=== PATIENT | male | born 1960 | race Caucasian/White ===

== ENCOUNTER 2020-01-15 23:09 | Inpatient (IN) | payer OTHER, SELFPAY ==
[2020-01-15 23:09] VITALS: BP 121/91; PULSE 103; RESP 20; TEMP 36.8; O2SAT 97; BMI 41.8
--- NOTE | 2020-01-15 23:10 | XRR_ITS ---
PROCEDURE INFORMATION: Exam: XR Chest, 1 View Exam date and time: 01/15/2020 11:12 PM Age: 59 years old Clinical indication: Chest pain; Additional info: Stemi TECHNIQUE: Imaging protocol: XR of the chest Views: 1 view. COMPARISON: No relevant prior studies available. FINDINGS: Lungs: Mild pulmonary edema is appreciated. Pleural space: Unremarkable. No pleural effusion. No pneumothorax. Heart/Mediastinum: Unremarkable. No cardiomegaly. Bones/joints: Unremarkable. XR/XR chest 1V portable [id number] IMPRESSION: Mild pulmonary edema.
--- NOTE | 2020-01-15 23:10 | ECG_ITS ---
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 Measurements Intervals [place] Rate: 96 P: 21 SC: 172 QRS: 84 QRSD: 100 T: 38 QT: 328 QTc: 415 Interpretive Statements SINUS RHYTHM POSSIBLE LEFT ATRIAL ENLARGEMENT [-0.1mV P WAVE IN V1/V2] ANTEROSEPTAL MYOCARDIAL INFARCTION , PROBABLY OLD [40+ ms Q WAVE IN V1-V4] ST ELEVATION, CONSIDER INFERIOR INJURY [MARKED ST ELEVATION W/O NORMALLY INFLECTED T WAVE IN II/aVF] ACUTE OR INTERPRETATION BASED ON A DEFAULT AGE OF 40 YEARS No previous ECG available for comparison Electronically Signed On 01-16-2020 22:03:08 CDT by Delia Frias M.D. [id number] f
--- NOTE | 2020-01-15 23:12 | ED_ITS ---
HPI - Chest Pain General: Chief Complaint: Chest Pain Stated Complaint: STEMI Time Seen by Provider: 01/15/20 23:11 Source: patient and EMS Mode of arrival: EMS Limitations: no limitations History of Present Illness: HPI narrative: 59-year-old male who states he is been having chest pain over the last 3 days. He states he started having a serious pain 1 hour ago. Patient brought in by EMS and is having an active ST elevation TN. Patient was given 2 nitros in route which did lower his pressure. Patient denies any worsening or improving factors. Denies any vomiting. He has a history of heart disease along with high cholesterol and high blood pressure. He is a former smoker. MD complaint: chest pain Associated symptoms: Deny abdominal pain, dyspnea, fever(s), nausea or vomiting Review of Systems Const: Denies: fever(s), chills, body aches or change in appetite Eyes: Denies: blurry vision or eye discomfort ENMT: Denies: throat pain or dental pain Card: Reports: chest pain Resp: Denies: dyspnea GI: Denies: abdominal pain, nausea, vomiting or diarrhea : Denies: dysuria Musc: Denies: neck pain or back pain Skin/Breast: Denies: rash Neuro: Denies: headache(s) Psych: Denies: depression Andrea/Lymph: Denies: easy bruising All/Imm: Denies: urticaria Physical Exam Const: COMMON NORMALS: no acute distress, patient oriented x3 and healthy appearing HENMT: COMMON NORMALS: normocephalic and atraumatic HEAD & SCALP: normocephalic and atraumatic Eye: COMMON NORMALS: Equal, round and reactive pupils present and EOMs intact bilaterally PUPIL: Yes Equal, round and reactive pupils present Neck/C-Spine: COMMON NORMALS: full ROM and supple Chest: COMMONS NORMALS: normal inspection of the chest and normal palpation of entire chest wall Resp: COMMON NORMALS: normal respiratory effort, No retractions, No use of accessory muscles and clear to auscultation bilaterally AUSCULTATION: clear to auscultation bilaterally Cardio: COMMON NORMALS: regular rate, regular rhythm and No murmurs present (Cardio) RATE: regular rate RHYTHM: regular rhythm GI: COMMON NORMALS: Normal to inspection, nondistended, normoactive bowel sounds present, Soft to palpation, non-tender and no masses PALPATION: Yes Soft to palpation Extremity: COMMON NORMALS: normal to inspection and full ROM Neuro: COMMON NORMALS: patient oriented x3, moves all extremities and no focal motor deficits Psych: COMMON NORMALS: mental status grossly normal, Normal thought process present and cooperative THOUGHT PROCESS: Normal thought process present Skin: COMMON NORMALS: no rashes or lesions noted and no wounds GENERAL SKIN EXAM: no rashes or lesions noted MDM - Chest Pain MDM Narrative: Medical decision making narrative: Patient presents here with ST elevation TN. Patient seen by Dr. Ryder will take to the Gauge Maker. Patient's blood pressure here is improved after IV fluids. Discharge Plan Discharge Patient Disposition: Admitted As Inpatient Clinical Impression: ST elevation [place] (STEMI) Qualifiers: Involved coronary artery: other inferior wall coronary artery Qualified Code(s): I21.19 - ST elevation (STEMI) myocardial infarction involving other coronary artery of inferior wall Condition: Stable Coding Level of Care Code ED Clean Room Assembler for Anna Parra
--- NOTE | 2020-01-15 23:18 | XACV_ITS ---
Gender: Male : 1960 Exam Priority: Routine Procedure(s): Procedure Description: Diagnostic procedure Procedure Description: Left Heart Catheterization Procedure Description: Right Heart Catheterization Procedure Description: Left ventriculography Diagnostic Findings LM: Severe 90% stenosis, PRISCA: 3 flow. pLAD to mLAD: Severe 100% stenosis, PRISCA: 2 flow. mLAD to dLAD: Severe 90% stenosis, PRISCA: 2 flow. pCIRC to mCIRC: Severe 90% stenosis, PRISCA: 2 flow. Mid Right Coronary Artery: Severe 100% stenosis, PRISCA: 0 flow. Mid Right Coronary Artery to Distal Right Coronary Artery: Severe 100% stenosis, PRISCA: 0 flow. Distal Right Coronary Artery: has lesion. Coronary angiography shows right dominance. PCI Status: Emergency PCI Indication: STEMI - Immediate PCI for STEMI Interventional Findings Mid Right Coronary Artery: 100% stenosis treated with two AB MINI TREK 2.00X12 RX BALLOON, MDT R MAYE 3.0X38 HENRRY, MDT R MAYE 3.0X18 HENRRY, and MDT NC EUPHORA RX 3.57C69XJ BALLOON. 0% residual stenosis, PRISCA: 3 flow. Mid Right Coronary Artery to Distal Right Coronary Artery: 100% stenosis treated with Drug Eluting Stent. 0% residual stenosis, PRISCA: 3 flow. Conclusions There is severe coronary artery disease with four vessel disease. Mid Right Coronary Artery was treated with three Balloon and two Drug Eluting Stent. Mid Right Coronary Artery to Distal Right Coronary Artery was treated with Drug Eluting Stent. Lewis Huizar is a 59 year old male past medical history significant for noncompliance, multivessel coronary artery disease with history of known chronically occluded mid LAD, history of 50% distal left main, history of balloon angioplasty of possible PDA, please note that this is as per patient's family I have not had any prior documentation from [place] according to the patient and family in [place] he was told that he requires bypass surgery which he declined. At that time balloon angioplasty was performed in one the artery and sent home with suggestion that he should get bypass. Patient did not follow-up with cardiology or primary care physician. In fact he stopped all the medicines. For the past few days patient has noticed that he is becoming more short of breath and experienced chest pain off and on basis many times a day especially after eating heavy meal. For the last 2 days his chest pain started becoming more consistent but he did not seek medical attention. Tonight all of a sudden it hit him so hard that he was not able to breathe rated 10 out of 10 he was pale sweaty and diaphoretic. He called 911 who brought him here EKG was consistent with inferior wall ST elevation with reciprocal changes in 1 and aVL. I responded to the ST elevation [place] pager patient was writhing in pain looking pale diaphoretic he appeared to be shocky with systolic blood pressure dropping down into 70s and off-and-on exhibiting bradycardia without significant heart blocks. As patient is becoming more unstable I will immediately take him to the Irrigation Equipment Remover. I have spoken to the patient and the family member his daughter and her over the phone and in person . All risk benefit and alternative for emergent procedure has been explained. They would like to proceed with it. Recommendations Dopplerable left anterior posterior tibial pulse. 1-Return to ICU for close monitoring and routine PCI care2-Trnasfer to ICU3-Consult for CABG4-Statin with LDL goal of 70 mg/dl, aspirin 81 mg p.o. daily for life long 5-CT surgery consults for CABG6-Optimal medical management for MI7-Follow up with Dr. Frias and establish care with primary care physician. Interventional RX Recommendation: CABG Diagnostic RX Recommendation: PCI w/o planned CABG Clinical Evaluation EBL: 5mL-10mL Procedural Details Pre-Procedure Time Out. Identified patient by full name and date of as verbalized by the patient/guarantor. Does the consent match the physician's order: N/A Emergent; Informed Consent not obtained due to time critical life threat. Accurate & Complete Informed Consent: N/A Emergent; Informed Consent not obtained due to time critical life threat. Inpatient/Outpatient History & Physical on Chart: N/A Emergent; Informed Consent not obtained due to time critical life threat. If H&P is completed, is and addenduem needed: N/A Emergent; Informed Consent not obtained due to time critical life threat; If yes, is the addendum complete: N/A Emergent; Informed Consent not obtained due to time critical life threat. Visualize and Verify Site with Patient/Guarantor: N/A. Relevant Radiology Images available: N/A Emergent; Informed Consent not obtained due to time critical life threat. Pre-op teaching completed and patient verbalized understanding. The risks, benefits, and alternatives of sedation and/or procedure were discussed by physician. The patient agrees to continue. Procedure started. Current diagnosis: STEMI. Correct patient, site and procedure confirmed by cath team. PERRLA. Strong, equal hand customer agent bilaterally. Lungs clear x 5 lobes. Oxygen started at 3liters/min via nasal canula. IV Site on Arrival: 20 gauge in the right anticubital. Baseline sample Acquired. HR: 96 BPM. Physician notified. Equipment: 6F - Radial. Cardiac Cath Pack. ACIST Manifold Kit Model BT 2000. Heparinized Saline (2 units/mL), 1000 mL bag. Physician arrived. ap pads placed. Physician scrubbed in. Immediate Pre-Procedure Time Out. Correct Patient: Yes; Correct Procedure: Yes; Correct Site: Yes; Correct Patient Position: Yes; Correct Supplies: Yes; Dried Flammable Prep: Yes; Blood Products Available: N/A Emergent; Informed Consent not obtained due to time critical life threat;. Lidocaine 1% infiltrated to the right radial. Lidocaine 1% infiltrated to the right groin. Unable to obtain radial access. MD attempting to gain access in the Femoral artery. Arterial access obtained with micropuncture set. A 6 thai JR4 catheter in over wire. [place] guidewire was advanced through the guide catheter to lesion in the distal RCA. Balloon inserted to lesion in the mid RCA. Inflation number: 1 The AB MINI TREK 2.00X12 RX BALLOON was reinflated across the Mid RCA, to 15 JOSELUIS for 0:10 seconds. Inflation number: 2 The AB MINI TREK 2.00X12 RX BALLOON was reinflated across the Mid RCA, to 15 JOSELUIS for 0:10 seconds. Balloon out. Wire out. Inflation number : 3 A AB MINI TREK 2.00X12 RX BALLOON was prepped and advanced across the Mid RCA , then inflated to 16 JOSELUIS for 0:06 seconds. Inflation number: 4 The AB MINI TREK 2.00X12 RX BALLOON was reinflated across the Mid RCA, to 16 JOSELUIS for 0:03 seconds. Inflation number: 5 The AB MINI TREK 2.00X12 RX BALLOON was reinflated across the Mid RCA, to 16 JOSELUIS for 0:04 seconds. Inflation number: 6 The AB MINI TREK 2.00X12 RX BALLOON was reinflated across the Mid RCA, to 16 JOSELUIS for 0:03 seconds. Results checked. Stent inserted to lesion in the mid RCA. Inflation Number : 7 A MDT R MAYE 3.0X38 HENRRY -Lot Number# [id number] was prepped and advanced across the Mid RCA. The stent was deployed at 16 JOSELUIS for 0:32 seconds. guide and wire are back. free floating in the aorta. guide and wire out. Venous access obtained with a micropuncture set. ACT drawn. Results 238 seconds. Therapeutic limits - pre-heparin administration 90-150 seconds and monitoring heparin during a vascular procedure >250 seconds. Inflation Number : 8 A MDT R MAYE 3.0X18 HENRRY -Lot Number#[id number] was prepped and advanced across the Mid RCA. The stent was deployed at 14 JOSELUIS for 0:18 seconds. Inflation number : 9 A MDT NC EUPHORA RX 3.39J51CM BALLOON was prepped and advanced across the Mid RCA , then inflated to 14 JOSELUIS for 0:18 seconds. Inflation number: 10 The MDT NC EUPHORA RX 3.95E99UH BALLOON was reinflated across the Mid RCA, to 14 JOSELUIS for 0:15 seconds. Inflation number: 11 The MDT NC EUPHORA RX 3.96J40EA BALLOON was reinflated across the Mid RCA, to 9 JOSELUIS for 0:10 seconds. Guide catheter out. [employer] exchange 6fr for 6fr. A 6 thai JL4 catheter in over wire. Multiple views taken of left coronary artery. Catheter out. ACT drawn. Results 237 seconds. Therapeutic limits - pre-heparin administration 90-150 seconds and monitoring heparin during a vascular procedure >250 seconds. Sheath(s) sutured into position with 2-0 silk and sterile 4x4's and Op-site applied over the site. No oozing or signs and symptoms of hematoma noted. PERRLA. Strong, equal hand customer agent bilaterally. No VTE prophylaxis required. Complications: none. Estimated blood loss: 5mL-10mL. Post-op diagnosis: multiple cornarny artery disease with acute mi. Total IV fluids: 700 mL. Procedure completed. Patient transferred by bed to ICU. PCI Indication: STEMI. Vital chart was stopped. Site: Right Femoral artery Sheath Size: 6 Fr Hemostasis Success: Unsuccessful Site: Right Femoral vein Sheath Size: 4 Fr Hemostasis Success: Unsuccessful Procedure Medications Start: 11:42 PM Stop: 11:42 PM Medication: Fentanyl Amount: 50 mcg Route: I.V. Start: 11:43 PM Stop: 11:43 PM Medication: Versed Amount: 1 mg Route: I.V. Start: 12:06 AM Stop: 12:06 AM Medication: Fentanyl Amount: 50 mcg Route: I.V. Start: 12:07 AM Stop: 12:07 AM Medication: Fentanyl Amount: 50 mcg Route: I.V. Start: 12:09 AM Stop: 12:09 AM Medication: Heparin Amount: 3000 units Route: I.V. Start: 12:09 AM Stop: 12:09 AM Medication: Aggrastat 12.5 mg/250 mL Amount: 65 ml Route: I.V. bolus Start: 12:26 AM Stop: 12:26 AM Medication: Heparin Amount: 3000 units Route: I.V. Start: 12:30 AM Stop: 12:30 AM Medication: Versed 1 mg and Fentanyl 25 mcg Amount: 1 Route: I.V. Start: 12:40 AM Stop: 12:40 AM Medication: Versed Amount: 1 mg Route: I.V. Start: 12:40 AM Stop: 12:40 AM Medication: Fentanyl Amount: 50 mcg Route: I.V. Start: 12:58 AM Stop: 12:58 AM Medication: Versed Amount: 1 mg Route: I.V. Start: 12:58 AM Stop: 12:58 AM Medication: Fentanyl Amount: 50 mcg Route: I.V. I, the attending physician, have reviewed and verified all procedure medications. Yes, all medications given per verbal order Report Signatures Finalized by:Delia Frias MD on 01/19/2020 10:38:45 PM
[2020-01-15] MEDS: heparin 5,000 unit/mL INJ 1 mL 4000 UNIT IVP (23:24)
[2020-01-15] MEDS: clopidogrel 300 mg Tablet PO (23:25)
[2020-01-15] MEDS: ondansetron 2 mg/ML SDV 2 mL 4 MG IVP (23:25)
[2020-01-15] MEDS: sodium chloride 0.9% 500 ML 999 ML IV (23:27)
--- NOTE | 2020-01-15 23:28 | PC.NURSE ---
patient transported to laboratory geneticist
[2020-01-15 23:31] VITALS: BP 121/91; PULSE 103; RESP 18; RESP 24; O2SAT 97; O2SAT 98
[2020-01-15] MEDS: morphine 4 mg/mL SDV 1 mL IVP (23:31)
--- NOTE | 2020-01-15 23:31 | PM.HP ---
Providers/Chief Complaint Chief Complaint: STEMI History of Present Illness Lewis Huizar is a 59 year old male past medical history significant for noncompliance, multivessel coronary artery disease with history of known chronically occluded mid LAD, history of 50% distal left main, history of balloon angioplasty of possible PDA, please note that this is as per patient's family I have not had any prior documentation from [place] according to the patient and family in [place] he was told that he requires bypass surgery which he declined. At that time balloon angioplasty was performed in one the artery and sent home with suggestion that he should get bypass. Patient did not follow-up with cardiology or primary care physician. In fact he stopped all the medicines. For the past few days patient has noticed that he is becoming more short of breath and experienced chest pain off and on basis many times a day especially after eating heavy meal. For the last 2 days his chest pain started becoming more consistent but he did not seek medical attention. Tonight all of a sudden it hit him so hard that he was not able to breathe rated 10 out of 10 he was pale sweaty and diaphoretic. He called 911 who brought him here EKG was consistent with inferior wall ST elevation with reciprocal changes in 1 and aVL. I responded to the ST elevation [place] pager patient was writhing in pain looking pale diaphoretic he appeared to be shocky with systolic blood pressure dropping down into 70s and off-and-on exhibiting bradycardia without significant heart blocks. As patient is becoming more unstable I will immediately take him to the Software Developer Manager. I have spoken to the patient and the family member his daughter and her over the phone and in person . All risk benefit and alternative for emergent procedure has been explained. They would like to proceed with it. Review of Systems Const: Denies: fever(s), chills, body aches or change in appetite Eyes: Denies: blurry vision or eye discomfort ENMT: Denies: throat pain or dental pain Card: Reports: chest pain Resp: Denies: dyspnea GI: Denies: abdominal pain, nausea, vomiting or diarrhea : Denies: dysuria Musc: Denies: neck pain or back pain Skin/Breast: Denies: rash Neuro: Denies: headache(s) Psych: Denies: depression Andrea/Lymph: Denies: easy bruising All/Imm: Denies: urticaria Medications/Allergies Allergies Allergy/AdvReac Type Severity Reaction Status Date / Time No Known Allergies Allergy Verified 01/15/20 23:17 Vitals/I&O/Wt Last Vital Signs Temp 98.2 F 01/15/20 23:09 Pulse 103 H 01/15/20 23:09 Resp 18 01/15/20 23:31 BP 121/91 01/15/20 23:09 Pulse Ox 98 01/15/20 23:31 Weight last 48 hrs Weight 275 lb Physical Exam Narrative: EXAM NARRATIVE: GENERAL: Patient is alert, awake and oriented x3. Diaphoretic pale severe pain NECK: No jugular vein distension. HEENT: No cyanosis. No icterus. No pallor. HEART: Regular S1 and S2. No murmur, rub or gallop. LUNGS: Reduced breath bilaterally. ABDOMEN: Soft, nontender and nondistended. Positive bowel sounds. No guarding, rebound or tenderness. CENTRAL NERVOUS SYSTEM: Grossly nonfocal. EXTREMITIES: Lower extremities without edema bilaterally. Data : 01/15/20 23:15 01/15/20 23:15 A&P Assessment and plan (1) ST elevation [place] (STEMI): Patient presentation is most consistent with inferior wall unstable non-ST elevation WI. I will immediately take him to the Software Developer Manager for reperfusion. Further plan will be advised as per progress of the patient. We will load patient with Plavix aspirin and statin. He will be given anticoagulation in the form of heparin. Status: Acute Qualifiers: Involved coronary artery: other inferior wall coronary artery Qualified Code(s): I21.19 - ST elevation (STEMI) myocardial infarction involving other coronary artery of inferior wall (2) Shock, cardiogenic: Cardiogenic shock due to dominant RCA and possible posterior wall ischemia involvement. I will give him IV fluid and he will be started on pressors if did not increase. He will be immediately taken to the Software Developer Manager for revascularization. Status: Acute Attestations Medical Necessity Statement*: I am expecting his stay to cross more than 2 midnight Time Spent in Patient Care: 16 - 35 minutes Critical Care Time: Critical Care Time (min): 30 Coding Level of Care Code New Pt Acute National Coverage Specialist for [facility] Fwd Patient Type New History Comprehensive Exam Comprehensive Medical Decision Making High Complexity Diagnoses ST elevation [place] (STEMI) I21.19 Involved coronary artery: other inferior wall coronary artery Shock, cardiogenic R57.0
--- NOTE | 2020-01-15 23:31 | W.PM.OPSUD ---
Surgery/Procedure H&P Update DATE OF PROCEDURE: January 15, 2020 DATE H&P PERFORMED: 01/15/20 H&P UPDATE INFORMATION: I have examined patient prior to procedure PREOP DIAGNOSIS: ST elevation ME/unstable PATIENT REASSESSED PRIOR TO SEDATION, WITH NO CHANGE NOTED: Yes PHYSICAL EXAM: alert, oriented x 3 and clear to auscultation bilaterally AIRWAY EVAL/ANESTHESIA PLAN: ASA II, Risks, benefits & alternatives of sedation and/or procedure discussed and Patient agrees to continue as planned
[2020-01-15 23:44] LABS: Basophils # 0.1 10^3/uL (0.0-0.1); Basophils % 0.5 %; Eosinophils # 0.1 10^3/uL (0.0-0.8); Eosinophils % 0.4 %; Hematocrit 48.7 % (42.0-52.0); Hemoglobin 15.7 g/dL (11.7-16.6); Lymphocytes # 1.1 10^3/uL (0.8-4.8); Lymphocytes % 9.8 %; Mean Corpuscular HGB Conc 32.2 g/dL (30.0-36.0); Mean Corpuscular Volume 92.9 fL (80-94); Mean Platelet Volume 10.9 fL (7.4-10.4); Monocytes # 0.6 10^3/uL (0.2-0.9); Monocytes % 5.3 %; Neutrophils # 9.52 10^3/uL (1.8-7.7); Neutrophils % 83.6 %; Nucleated Red Blood Cells % 0 %; Platelet Count 279 10^3/cmm (130-400); Red Blood Count 5.24 10^6/uL (4.1-5.3); Red Cell Distribution Width 14.1 % (12.1-15.1); White Blood Count 11.4 10^3/uL (4.0-10.0)
[2020-01-16] VITALS (53 sets, daily range): BP systolic 89–130; BP diastolic 65–95; PULSE 83–111; RESP 15–32; TEMP 36.6–36.9; O2SAT 87–99; BMI 41.8
[2020-01-16] LABS: Alanine Aminotransferase 45 U/L (0-41); Albumin Level 4.7 g/dL (3.5-5.2); Alkaline Phosphatase 70 IU/L (40-130); Aspartate Amino Transferase 40 U/L (0-40); Blood Urea Nitrogen 17 mg/dL (6-20); CKMB 20.8 ng/mL (0-10.4); CKMB Relative Index 8.3 % (0.0-5.3); Calcium 8.7 mg/dL (8.5-10.5); Carbon Dioxide 23 mmol/L (22-29); Chloride 100 mmol/L (98-107); Creatine Phosphokinase 250 U/L (39-308); Globulin 2.6 g/dL (1.3-4.6); Glomerular Filtration Rate 76.7 mL/min (90-130); Glucose 168 mg/dL (65-115); Osmolality Calculated 282 mOsm/kg (285-295); Sodium 136 mmol/L (136-145); Total Bilirubin 0.4 mg/dL (0.15-1.2); Total Protein 7.3 g/dL (6.6-8.7)
[2020-01-16 00:04] LABS: Anion Gap 17.4 (5-19)
[2020-01-16 00:05] LABS: INR 0.95 (0.8-1.2); Potassium 4.4 mmol/L (3.5-5.1)
[2020-01-16 00:06] LABS: Partial Thromboplastin Time 28.6 SECONDS (23.9-36.7)
--- NOTE | 2020-01-16 00:19 | PC.NURSE ---
son in law Angel [phone]
--- NOTE | 2020-01-16 01:10 | ECG_ITS ---
[facility] Test Date: 2020-01-16 Pat Name: Lewis Huizar Department: Room: ICU03 Gender: Male Belt Molder: : 1960 Requested By: Ashish Nicole Order Number: [id number] Aury MD: Delia Frias M.D. Measurements Intervals [place] Rate: 86 P: 27 MA: 176 QRS: 61 QRSD: 86 T: 66 QT: 356 QTc: 426 Interpretive Statements SINUS RHYTHM POSSIBLE LEFT ATRIAL ENLARGEMENT [-0.1mV P WAVE IN V1/V2] ANTEROSEPTAL MYOCARDIAL INFARCTION [40+ ms Q WAVE IN V1-V4], OF INDETERMINATE AGE INTERPRETATION BASED ON A DEFAULT AGE OF 40 YEARS Compared to ECG 01/15/2020 23:20:06 ST (T wave) deviation no longer present Myocardial infarct finding still present Electronically Signed On 01-16-2020 22:04:09 CDT by Delia Frias M.D. [id number] f
[2020-01-16] MEDS: FUROsemide 10 mg/mL SDV 4mL 60 MG IVP (01:43)
[2020-01-16] MEDS: clopidogrel 300 mg Tablet PO (01:53)
[2020-01-16] MEDS: morphine 4 mg/mL SDV 1 mL IVP ×2 (02:22→07:26)
[2020-01-16] MEDS: atorvastatin 40 mg Tablet 80 MG PO ×2 (02:23→20:15)
[2020-01-16 02:51] LABS: Troponin 5 2HR 2841 ng/L (0-15)
--- NOTE | 2020-01-16 05:10 | ECG_ITS ---
[facility] Test Date: 2020-01-16 Pat Name: Lewis Huizar Department: Room: ICU03 Gender: Male Human Factors Scientist: : 1960 Requested By: Ashish Nicole Order Number: [id number] Aury MD: Delia Frias M.D. Measurements Intervals [place] Rate: 86 P: 48 AR: 175 QRS: 46 QRSD: 90 T: 33 QT: 349 QTc: 419 Interpretive Statements LEFT ATRIAL ENLARGEMENT [-0.15mV P WAVE IN V1/V2] ANTEROSEPTAL MYOCARDIAL INFARCTION [40+ ms Q WAVE IN V1-V4], OF INDETERMINATE AGE ST deviation in the inferior leads are nonspecific compared to ECG 01/16/2020 02:59:20 ST (T wave) deviation now present Sinus rhythm no longer present Myocardial infarct finding still present Electronically Signed On 01-16-2020 22:05:43 CDT by Delia Frias M.D. [id number]
[2020-01-16 07:58] LABS: Troponin 5 6HR 3016 ng/L (0-15)
[2020-01-16] MEDS: fentaNYL 50 mcg/mL INJ 2mL IVP (08:03)
[2020-01-16] MEDS: ondansetron 2 mg/ML SDV 2 mL 4 MG IVP (08:12)
[2020-01-16] MEDS: aspirin 81 mg EC Tablet PO (10:00)
[2020-01-16] MEDS: ALPRAZolam 0.25 mg Tablet PO (10:06)
--- NOTE | 2020-01-16 11:33 | USCV_ITS ---
Lewis Huizar Age: 59 Gender: M : 1960 Exam Date: 01/16/2020 14:16 Ordering Phys: Delia Frias MD ([email or web address]) Technologist: Laura Sparrow [place] [facility] [place]ication: STEMI, CHF BP: 107 / 89 HR: 90 Rhythm: Sinus Technical Quality: Technically difficult study MEASUREMENTS (Male / Female) Normal Values 2D ECHO LV Diastolic Diameter PLAX 5.5 cm 4.2 - 5.9 / 3.9 - 5.3 cm LV Systolic Diameter PLAX 4.3 cm LV Chamber Size 4.9 cm IVS Diastolic Thickness 0.8 cm 0.6 - 1.0 / 0.6 - 0.9 cm IVS Systolic Thickness 1.3 cm LVPW Diastolic Thickness 1.3 cm 0.6 - 1.0 / 0.6 - 0.9 cm LVPW Systolic Thickness 1.8 cm RV Chamber Size 2.5 cm LVOT Diameter 2.1 cm LV Ejection Fraction 2D Teich 41.8 % LA Diameter 4.6 cm LA Width 3.1 cm LA Height 5.2 cm RA Width 2.6 cm RA Height 5.2 cm Aorta at Sinotubular Diameter 2.6 cm M-MODE LV Diastolic Diameter MM 6.2 cm 4.2 - 5.9 / 3.9 - 5.3 cm LV Systolic Diameter MM 4.8 cm LV Ejection Fraction MM Teich 45.1 % IVS Diastolic Thickness MM 0.9 cm 0.6 - 1.0 / 0.6 - 0.9 cm IVS Systolic Thickness MM 1.0 cm LVPW Diastolic Thickness MM 1.3 cm 0.6 - 1.0 / 0.6 - 0.9 cm LVPW Systolic Thickness MM 1.8 cm RV Diastolic Diameter MM 1.3 cm Aortic Annulus Diameter 2.9 cm LA Ao Ratio MM 1.6 MV E Point Septal Separation 1.3 cm DOPPLER AV Peak Velocity 221.0 cm/s LVOT Peak Velocity 126.0 cm/s AV Area Cont Eq vti 1.8 cm squared AV Area Cont Eq pk 2.0 cm squared MV Area PHT 4.2 cm squared Mitral E to A Ratio 0.9 MV E' Velocity 10.0 cm/s Mitral E to MV E' Ratio 11.7 Mitral E to LV E' Lateral Ratio 10.9 Mitral E to LV E' Septal Ratio 12.8 TV Peak E Velocity 59.0 cm/s PV Peak Velocity 70.0 cm/s RV Acceleration Time 0.1 s RV Ejection Time 0.2 s RV AcT/ET 0.3 FINDINGS Left Ventricle Moderately increased left ventricular cavity size. Moderately decreased left ventricular systolic function, there is mid to distal anterior and septal wall akinesis. Please note that due to foreshortening of images apex was not well visualized. There also appear to be inferior and inferolateral wall hypokinesis. Grade I/IV diastolic dysfunction (abnormal relaxation filling pattern), normal to mildly elevated filling pressures. Right Ventricle Normal right ventricular size. RVSP could not be calculated due to incomplete tricuspid regurgitation velocity profile. Right Atrium The right atrium is normal in size. Left Atrium Moderately increased left atrial size. Mitral Valve Moderately thickened mitral valve. No mitral valve stenosis. Moderate mitral valve regurgitation. Aortic Valve Moderate aortic valve calcification. Mild aortic valve stenosis, mean gradient 12.1 mmHg, YANN 1.8 cm squared. Velocity across the aortic valve is 2.2 m/s. Please note that patient has moderately depressed LV function therefore cannot rule out pseudo-aortic stenosis as well. Tricuspid Valve Moderate tricuspid valve stenosis. Pulmonic Valve Structurally normal pulmonic valve without significant stenosis. There is no pulmonic regurgitation. Pericardium Normal pericardium without effusion. Aorta Normal ascending aorta dimension. CONCLUSIONS 1-Moderately increased left ventricular cavity size. Moderately decreased left ventricular systolic function, there is mid to distal anterior and septal wall akinesis. Please note that due to foreshortening of images apex was not well visualized. There also appear to be inferior and inferolateral wall hypokinesis. Grade I/IV diastolic dysfunction (abnormal relaxation filling pattern), normal to mildly elevated filling pressures. These findings are consistent with ischemic cardiomyopathy. 2-Normal right ventricular size. RVSP could not be calculated due to incomplete tricuspid regurgitation velocity profile. 3-Moderately increased left atrial size. 4-Moderately thickened mitral valve. No mitral valve stenosis. Moderate mitral valve regurgitation. 5-Moderate aortic valve calcification. Mild aortic valve stenosis, mean gradient 12.1 mmHg, YANN 1.8 cm squared. Velocity across the aortic valve is 2.2 m/s. Please note that patient has moderately depressed LV function therefore cannot rule out pseudo-aortic stenosis as well. 6-Moderate tricuspid valve stenosis. 7-There is no pericardial effusion. 8-There are no prior echocardiogram studies to compare. Delia Frias MD (Electronically Signed) Final Date: 16 January 2020 17:30 S
[2020-01-16] MEDS: enoxaparin 40 mg/0.4 mL Syringe SUBCUT (14:44)
--- NOTE | 2020-01-16 17:57 | P.PN_ITS ---
Subjective Subjective: Interval history: Patient is status post PCI to mid to distal RCA with 2 overlapping drug-eluting stent. Overnight he became more stable sheaths were taken out from the right groin. Cardiogenic shock was resolved. He developed pulmonary edema which was treated with 60 mg of IV Lasix. He had 1 L output and off oxygen. Currently systolic blood pressure is around 100 Medications: Reviewed: Yes Vitals/I&O/Wt Last Vital Signs Temp 98.3 F 01/16/20 16:00 Pulse 98 01/16/20 16:00 Resp 18 01/16/20 16:00 BP 101/71 01/16/20 16:00 Pulse Ox 98 01/16/20 16:00 01/16/20 01/16/20 01/16/20 06:59 14:59 22:59 Intake Total 100 / 100 250 / 250 Output Total 1650 / 1650 400 / 400 Balance -1550 / -1550 -150 / -150 Weight last 48 hrs Weight 275 lb Weight 275 lb Physical Exam Narrative: EXAM NARRATIVE: GENERAL: Patient is alert, awake and oriented x3. NECK: No jugular vein distension. HEENT: No cyanosis. No icterus. No pallor. HEART: Regular S1 and S2. No murmur, rub or gallop. LUNGS: Clear to auscultate bilaterally. ABDOMEN: Soft, nontender and nondistended. Positive bowel sounds. No guarding, rebound or tenderness. CENTRAL NERVOUS SYSTEM: Grossly nonfocal. EXTREMITIES: Lower extremities without edema bilaterally. Right groin mild bruising and small hematoma Data : 01/15/20 23:15 01/15/20 23:15 A&P Assessment and plan (1) ST elevation [place] (STEMI): Status post PCI to mid to distal RCA which was 100% occluded and the culprit vessel. Patient was loaded with 600 mg of Plavix continue aspirin statin Plavix. I will give him another round of IV Lasix 40 mg. Once blood pressure enriquez stable I will add beta-quirino and MOLLY inhibitor. Echocardiogram was obtained which showed moderately depressed LV function 40%. During the same left heart cath it was learned that patient has 80% distal left main, 90% proximal circumflex and 100% chronically occluded proximal LAD. Patient will be referred for CABG I have a long discussion with the patient he would like me to stent his left main and circumflex I advised patient that in his case since he is diabetic with LV dysfunction and distal left main coronary artery bypass surgery has superior data then drug-eluting stents. Patient would like to think about it and he will let me know. I will start him on Lovenox since he completed the best rest for prophylaxis. Status: Acute Qualifiers: Involved coronary artery: other inferior wall coronary artery Qualified Code(s): I21.19 - ST elevation (STEMI) myocardial infarction involving other coronary artery of inferior wall (2) Shock, cardiogenic: Resolved. Status: Acute Attestations Medical Necessity Statement*: Patient require continuation of hospitalization for above defined problem. Coding Level of Care Code Established Pt Acute Social Sciences Chair for Anna Parra Patient Type Established History Detailed Exam Detailed Medical Decision Making Moderate Complexity Diagnoses ST elevation [place] (STEMI) I21.19 Involved coronary artery: other inferior wall coronary artery Shock, cardiogenic R57.0
[2020-01-16] MEDS: clopidogrel 75 mg Tablet PO (18:29)
[2020-01-16] MEDS: metoprolol tartrate 25 mg Tablet 12.5 MG PO (18:29)
[2020-01-16] MEDS: potassium chloride ER 10 mEq Tablet 20 MEQ PO (18:29)
[2020-01-16] MEDS: FUROsemide 10 mg/mL SDV 2mL 20 MG IVP (18:29)
--- NOTE | 2020-01-16 19:15 | PC.NURSE ---
Pt sleeping. O2 sat 87% on room air. Placed pt on 2L. O2 sat 96-99% now
[2020-01-17] VITALS (18 sets, daily range): BP systolic 89–132; BP diastolic 56–90; PULSE 69–110; RESP 12–32; TEMP 36.6–36.9; O2SAT 90–98
[2020-01-17] MEDS: enoxaparin 40 mg/0.4 mL Syringe SUBCUT ×2 (02:37→14:12)
--- NOTE | 2020-01-17 03:53 | PC.NURSE ---
Entered pt's room to find patient very angry and hostile. States no one is updating him on the plan and I've been very patient but you all are just taking advantage of my insurance company now Asked pt if he remembered Dr. Frias speaking with him yesterday about consulting with a CV surgeon at [facility]. Pt states he does remember but doesn't understand why no one has told him what's going on. Explained to pt that Dr. Frisa will speak with the dr at [facility] this morning and discuss with the pt what options are available and a plan will be made then. Pt verbalized understanding but continues to be angry and upset.
[2020-01-17 05:18] LABS: Anion Gap 11.3 (5-19); Blood Urea Nitrogen 17 mg/dL (6-20); Calcium 8.5 mg/dL (8.5-10.5); Carbon Dioxide 29 mmol/L (22-29); Chloride 102 mmol/L (98-107); Cholesterol 211 mg/dL (0-200); Glomerular Filtration Rate 68.8 mL/min (90-130); Glucose 122 mg/dL (65-115); HDL Cholesterol 37 mg/dL (60-100); LDL Cholesterol Calculated 148 mg/dL (50-129); Osmolality Calculated 284 mOsm/kg (285-295); Potassium 4.3 mmol/L (3.5-5.1); Sodium 138 mmol/L (136-145); Triglycerides 131 mg/dL (0-150)
[2020-01-17] MEDS: lisinopril 2.5 mg Tablet PO (09:08)
[2020-01-17] MEDS: pantoprazole DR 40 mg Tablet PO (09:09)
[2020-01-17] MEDS: metoprolol tartrate 25 mg Tablet PO (09:10)
[2020-01-17] MEDS: clopidogrel 75 mg Tablet PO (09:11)
[2020-01-17] MEDS: aspirin 81 mg EC Tablet PO (09:13)
--- NOTE | 2020-01-17 09:26 | PC.NURSE ---
removed urinary catheter. Educated patient on orthostatic hypotension/dizziness. Advised to dangle feet before getting up, encouraged him to use call light when he is getting up for the first time.
--- NOTE | 2020-01-17 10:01 | PC.NURSE ---
Patient settled in to room vital sings obtained oriented to room
--- NOTE | 2020-01-17 11:55 | PC.NURSE ---
Dr. Frias at bedside for assessment and discussion of POC.
--- NOTE | 2020-01-17 17:11 | PC.NURSE ---
Patient very indecisive about medical care decisions today. Daughter is currently bedside after visiting with Dr. Frias and discussing the future planned procedure for CABG. After Dr. Frias left bedside patient realized the doctor didn't want him to drive without someone accompanying patient. Patient became upset and then was undecided about having the procedure done and would like to talk to doctor further in the morning about being able to drive before having planned procedure.
[2020-01-17] MEDS: FUROsemide 10 mg/mL SDV 2mL 20 MG IVP (17:21)
--- NOTE | 2020-01-17 17:33 | PC.NURSE ---
Spoke with Dr osman about patient concerns that is medications have been changed and he does not want to take lisinopril would also like to be placed back on his atenolol Dr. Osman gave instructions to educate patient on the reasons for taking lisinopril to reduce scaring after a heart attack as well as help decrease stress on the heart to effectively control CHF ordered obtained to stop metoprolol and start Atenolol 20 mg Daily to start now
--- NOTE | 2020-01-17 17:36 | PM.PN ---
Subjective Subjective: Interval history: Patient is feeling much better. Heart rate is little bit on the faster side I will titrate beta-quirino. Medications: Reviewed: Yes Vitals/I&O/Wt Last Vital Signs Temp 97.9 F 01/17/20 15:48 Pulse 102 H 01/17/20 15:48 Resp 28 H 01/17/20 15:48 BP 104/75 01/17/20 15:54 Pulse Ox 90 01/17/20 15:48 01/17/20 01/17/20 01/17/20 06:59 14:59 22:59 Intake Total 500 / 1475 700 / 700 240 / 940 Output Total 1150 / 1950 300 / 300 Balance -650 / -475 400 / 400 240 / 640 Weight last 48 hrs Weight 275 lb 12.8 oz Weight 275 lb Weight 275 lb Physical Exam Narrative: EXAM NARRATIVE: GENERAL: Patient is alert, awake and oriented x3. NECK: No jugular vein distension. HEENT: No cyanosis. No icterus. No pallor. HEART: Regular S1 and S2. No murmur, rub or gallop. LUNGS: Clear to auscultate bilaterally. ABDOMEN: Soft, nontender and nondistended. Positive bowel sounds. No guarding, rebound or tenderness. CENTRAL NERVOUS SYSTEM: Grossly nonfocal. EXTREMITIES: Lower extremities without edema bilaterally. Data : 01/15/20 23:15 01/17/20 04:42 A&P Assessment and plan (1) ST elevation [place] (STEMI): Status post drug-eluting stent to RCA. Patient required bypass surgery for left main and mid LAD and circumflex. He is doing fine from cardiovascular perspective he would like to go to [facility]. I have spoken to Dr. Hernandez who told me that patient can see him early next week. We are planning to do viability study and LAD territory before proceeding with CABG there. Optimize medicine optimize beta-quirino aspirin statin and MOLLY inhibitor Status: Acute Qualifiers: Involved coronary artery: other inferior wall coronary artery Qualified Code(s): I21.19 - ST elevation (STEMI) myocardial infarction involving other coronary artery of inferior wall (2) Shock, cardiogenic: Improved and resolved Status: Acute (3) Hyperlipidemia LDL goal <70: On statin continue Status: Acute (4) CHF (congestive heart failure), NYHA class II: Continue diuretics. We will switch patient to oral by tomorrow. Currently patient is in compensated state of heart failure. Status: Acute Qualifiers: Congestive heart failure type: systolic Congestive heart failure chronicity: acute on chronic Qualified Code(s): I50.23 - Acute on chronic systolic (congestive) heart failure Attestations Medical Necessity Statement*: Patient require continuation hospitalization for above defined care. Coding Level of Care Code Established Pt Acute Yacht Captain for Anna Parra Patient Type Established History Detailed Exam Detailed Medical Decision Making Moderate Complexity Diagnoses ST elevation [place] (STEMI) I21.19 Involved coronary artery: other inferior wall coronary artery Shock, cardiogenic R57.0 Hyperlipidemia LDL goal <70 E78.5 CHF (congestive heart failure), NYHA class II I50.23 Congestive heart failure type: systolic Congestive heart failure chronicity: acute on chronic
--- NOTE | 2020-01-17 17:53 | PC.NURSE ---
Patient requesting a document to know who has access to his medical records and wants a copy of it for his personal records. Patient also requested BP medication be changed back to atenolol, which is what patient takes at home. Dr notified and changed BP medication order per patient request.
[2020-01-17] MEDS: atenolol 50 mg Tablet 25 MG PO (17:59)
--- NOTE | 2020-01-17 18:03 | PC.NURSE ---
Patient given PHI form per request. Patient also informed about password being needed to access account information password [id number], anyone without password will not receive any private information.
[2020-01-17] MEDS: atorvastatin 40 mg Tablet 80 MG PO (20:30)
--- NOTE | 2020-01-17 21:12 | PC.NURSE ---
REPORT RECEIVED FROM OFF GOING NURSE. PT IS RESTING IN BED. PT DENIES PAIN. ASSISTED WITH REARRANGING ROOM FOR PT TO BE IN RECLINER. WILL CONTINUE TO MONITOR.
[2020-01-18] VITALS (11 sets, daily range): BP systolic 89–111; BP diastolic 59–80; PULSE 80–91; RESP 12–26; TEMP 36.6–37; O2SAT 90–94
[2020-01-18] MEDS: enoxaparin 40 mg/0.4 mL Syringe SUBCUT ×2 (03:00→14:45)
--- NOTE | 2020-01-18 06:06 | PC.NURSE ---
PT HAD AN UNEVENTFUL NIGHT. DENIES PAIN AT THIS TIME. VS WNL. WILL GIVE REPORT TO ON COMING SHIFT.
--- NOTE | 2020-01-18 08:40 | PC.NURSE ---
PATIENT RESTING IN BED ; UPON ENTERING ROOM PATIENT STATED THAT HE WAS EXTREMELY UNHAPPY WITH HIS CARE ; HE WAS UNHAPPY THAT HE DID NOT GET A WALK LAST NIGHT ; HE WAS UNHAPPY THAT HIS DC ORDERS WERE NOT ENTERED YET ; HE WAS UNHAPPY THAT THIS RN DID NOT RESPOND IMMEDIATELY TO HIS ROOM WHEN HIS CALL LIGHT WAS ANSWERED BY US ; PATIENT CONTINUED TO STATE THAT HE NEEDED TO GET INSURANCE AND ANOTHER HOSPITAL INVOLVED WITH HIS CARE BUT DID NOT STATE ONE SPECIFIC FACILITY INSTEAD STATING SEVERAL DIFFERENT NAMES ; PATIENT DEMANDED TO SPEAK WITH THE DR AND STATED HE WAS UNHAPPY WHEN HE WAS INFORMED THAT DR FITCH WAS IN PROCEDURES ; HE STATED THAT DR FITCH HAD TOLD HIM YESTERDAY IT WOULD BE NOON OR LATER SO THIS RN REITERATED HIS STATEMENT OF NOON OR LATER ; PATIENT ALSO STATED THAT THE DON NEEDED TO 'GET AHOLD' OF THE DRS AND MAKE THEM 'DO RIGHT' ; PATIENT ALSO STATED THAT 'THE [facility]ARD OF [facility]ALING [facility]IC[facility]' NEEDED TO BE CONTACTED TO HELP GET HIM DISCHARGED ; PATIENT WAS THEN READY FOR HIS SHOWER SO TOPPER PRESS OPERATOR AUTOMATIC TOOK HIM TO SHOWER ROOM ; TECHNICAL MARKETING CONSULTANT NOTIFIED
[2020-01-18] MEDS: lisinopril 2.5 mg Tablet PO (09:38)
[2020-01-18] MEDS: atenolol 50 mg Tablet 25 MG PO (09:38)
[2020-01-18] MEDS: aspirin 81 mg EC Tablet PO (09:38)
[2020-01-18] MEDS: clopidogrel 75 mg Tablet PO (09:38)
[2020-01-18] MEDS: pantoprazole DR 40 mg Tablet PO (09:38)
--- NOTE | 2020-01-18 14:15 | P.DES_ITS ---
Discharge Providers DDS Date of Admission: 01/16/20 01:25 Date Summary Completed: 01/18/20 Attending Provider at Admission: Delia Frias MD Attending Provider at Discharge: Delia Frias MD DS Diagnoses Hospital Diagnoses (1) ST elevation [place] (STEMI): Qualifiers: Involved coronary artery: other inferior wall coronary artery Qualified Code(s): I21.19 - ST elevation (STEMI) myocardial infarction involving other coronary artery of inferior wall (2) Shock, cardiogenic: (3) Hyperlipidemia LDL goal <70: (4) CHF (congestive heart failure), NYHA class II: Qualifiers: Congestive heart failure type: systolic Congestive heart failure chronicity: acute on chronic Qualified Code(s): I50.23 - Acute on chronic systolic (congestive) heart failure Reason for Visit Reason for Visit: STEMI Summary Additional Data: Advance directives?: No Discharge Plan Discharge Condition: Stable Referrals: Devyn Carmona III [Family Provider] - Attestations Quality - VTE: Deep Vein Thrombosis/Pulmonary Embolism Present on Admission: No Coding Level of Care Code Acute Java Software Engineer for [facility] Fwd Diagnoses ST elevation [place] (STEMI) I21.19 Involved coronary artery: other inferior wall coronary artery Shock, cardiogenic R57.0 Hyperlipidemia LDL goal <70 E78.5 CHF (congestive heart failure), NYHA class II I50.23 Congestive heart failure type: systolic Congestive heart failure chronicity: acute on chronic
--- NOTE | 2020-01-18 14:16 | PM.DCS ---
Discharge Providers Date of Admission: 01/16/20 01:25 Date of Discharge: January 18, 2020 Attending Provider at Admission: Delia Frias MD Attending Provider at Discharge: Delia Frias MD Diagnoses at Discharge Discharge Diagnosis (1) ST elevation TN (STEMI): Status: Acute Qualifiers: Involved coronary artery: other inferior wall coronary artery Qualified Code(s): I21.19 - ST elevation (STEMI) myocardial infarction involving other coronary artery of inferior wall (2) Shock, cardiogenic: Status: Acute (3) Hyperlipidemia LDL goal <70: Status: Acute (4) CHF (congestive heart failure), NYHA class II: Status: Acute Qualifiers: Congestive heart failure chronicity: acute on chronic Congestive heart failure type: systolic Qualified Code(s): I50.23 - Acute on chronic systolic (congestive) heart failure Reason for Visit Reason for Visit: STEMI Hospital Course Discharge Summary: Lewis Huizar is a 59 year old male past medical history significant for noncompliance, multivessel coronary artery disease with history of known chronically occluded mid LAD, history of >50% distal left main, history of balloon angioplasty in unknown artery, please note that this is as per patient's family I have not had any prior documentation from [place] according to the patient and family in [place] he was told that he requires bypass surgery which he declined. At that time balloon angioplasty was performed in one the artery and sent home with suggestion that he should get bypass. Patient did not follow-up with cardiology or primary care physician. In fact he stopped all the medicines. Over the weekend patient was brought in to the emergency room through EMS accompanied by his son-in-law as he was in severe chest pain diaphoretic short of breath and hypotensive. Twelve-lead EKG was suggestive of inferior wall ST elevation TN. He was immediately taken to the [facility]. Due to hemodynamic instability I approached right coronary artery through right common femoral artery through JR guide . Right coronary artery was immediately opened through balloon angioplasty and flow was restored. Patient started stabilizing hemodynamic enriquez. He was treated with 2 overlapping drug-eluting stents in the mid to distal RCA. He was loaded with 600 mg of Plavix, later patient was shifted to ICU. Over next 2 to 3 days he became more stable and started walking around without any difficulty and chest pain. Echocardiogram was performed which showed moderately depressed LV function of 40%. His medicines were optimized. Patient has been advised coronary artery bypass surgery . He told me that he has appointment at [facility] on of this month he may will go there. I suggested patient that he may not be able to travel and it may not be safe for him. I offered patient in-house coronary artery bypass surgery through Dr. De La Cruz which he declined. He has been offered to transfer to either [facility] in [facility] or to [place] or to hospital of his choice in [facility] during this admission but he insisted that I should proceed with stent placement in his left main which I explained in detail at many different occasion for more than 30 minutes of multiple sessions that option for percutaneous intervention is inferior to coronary artery bypass surgery due to involvement of left main and secondary to moderately depressed LV function plus due to the nature of the lesion in LAD. I suggested that he should undergo viability study for stent LAD territory to decide regarding revascularization of that segment. Yesterday finally he agreed to me and gave permission to call [facility]. I called [facility] and spoke with Dr. Hernandez cardiovascular surgeon who was willing to accept the patient either in-house transfer or if he is stable as an outpatient. I again discussed it with the patient that Dr. Hernandez is not available for 1 week and can see him as an outpatient after 1 week to 10 days in first week of January . Dr. Hernandez offered referred him to his colleagues for CABG within this week but patient declined and told me that he will only go with Dr Hernandez and will not accept any other surgeon. Patient wanted me to discharge him and set him up with [facility] CT surgery next week. Dr. Hernandez was consulted again over the phone by me who told me that he may will see him in the first week of January which I conveyed to the patient. Please also note that for the past 1 to 2 days patient started refusing medicines such as lisinopril and metoprolol. He wanted me to put him back on atenolol which I did. For the last 2 days patient has been ambulating in the hospital hallways without any difficulty or symptoms. His blood pressure is stable and optimal. He wanted to be discharged home. He was again offered that we may can transfer him or send him to [facility] and also we have in-house CT surgery which he again declined. We finally made a pact that since he lives nearby I may will discharge him home if he had any episode of chest pain or other symptoms such as worsening of shortness of breath he should call 911 and come to the ER. During my process of discharge I mentioned that he cannot drive as he is not safe to drive or live by himself until he go through his surgery his surgery, this sentence flared up the patient, he wanted me to change it and say that he should not be stopped from driving which I refused as it can endanger his life or others on the road. He threatened to leave the hospital as he did not wanted to sign any paperwork until I give him permission to drive. Patient started using manipulative tactics and threw tantrum. Again I try to made him understand that it is not possible for me to release him for driving until unless he achieve reasonable safe state of health. I told patient that this Friday he has appointment with me. He has been given written record of all medications . Medicines were also called to the pharmacy with refills. He has been told that he cannot stop clopidogrel/Plavix for at least 1 year, he has been instructed to come back to the hospital if he had chest pain or out of usual shortness of breath. He has been offered that I may can send him anytime when needed for bypass surgery here in [place] or at [facility]. Physical Exam Narrative: EXAM NARRATIVE: GENERAL: Patient is alert, awake and oriented x3. NECK: No jugular vein distension. HEENT: No cyanosis. No icterus. No pallor. HEART: Regular S1 and S2. No murmur, rub or gallop. LUNGS: Clear to auscultate bilaterally. ABDOMEN: Soft, nontender and nondistended. Positive bowel sounds. No guarding, rebound or tenderness. CENTRAL NERVOUS SYSTEM: Grossly nonfocal. EXTREMITIES: Lower extremities without edema bilaterally right groin wound site looks good Discharge Data Data Completed and Pending: Completed Studies During Hospitalization Category Date Time Status XR chest 1V mohit ble [id number] Urgent Exams 01/15/20 23:10 Completed CV echo complete* [id number] Routine Ultrasound 01/16/20 11:33 Completed Pending at discharge Category Date Time Status PATIENT SERVICES MANAGER request for service Stat Exams 01/15/20 23:18 Taken Vitals: Last Vital Signs Temp 98.2 F 01/18/20 12:00 Pulse 82 07/21/20 12:00 Resp 18 01/18/20 12:00 BP 106/73 01/18/20 13:49 Pulse Ox 93 01/18/20 12:00 Discharge Plan Discharge Patient Disposition: Home, Self-Care Condition: Stable Prescriptions: New atorvastatin 40 mg Tablet 80 mg PO BEDTIME Qty: 30 RF: 3 clopidogrel 75 mg Tablet 75 mg PO DAILY Qty: 90 RF: 3 aspirin 81 mg Tablet,Delayed Release (Dr/Ec) 81 mg PO DAILY Qty: 30 RF: 3 pantoprazole 40 mg Tablet,Delayed Release (Dr/Ec) 40 mg PO DAILY Qty: 30 RF: 3 lisinopril 2.5 mg Tablet 2.5 mg PO DAILY Qty: 30 RF: 3 atenolol 50 mg Tablet 25 mg PO DAILY Qty: 30 RF: 3 Lasix 20 mg tablet 20 mg PO DAILY Qty: 30 RF: 4 potassium chloride 10 mEq capsule, extended release 10 meq PO DAILY Qty: 30 RF: 3 isosorbide dinitrate 20 mg tablet 10 mg PO BID Qty: 60 RF: 3 nitroglycerin 0.4 mg tablet, sublingual 0.4 mg SUBLINGUAL Q5M Qty: 30 RF: 3 Discharge Orders: Discharge Order (Routine); Ordered 01/18/20 Ordered By: Delia Frias Referrals: Delia Frias MD [Physician] - (You have an follow-up appointment with Almaz Matthews on January 19 with check-in at 2:15p.m. and appointment at 2:30p.m. If you have any questions, please, call ) Devyn Carmona III [Family Provider] - (Dr. Devyn Carmona's offgice will contact you to schedule an follow-up appointment in 4 to 7 days. If, you haven't heard from them by morning. Please, call ) Discharge Diet: Cardiac and Diabetic Discharge Activity: Limit activity as instructed Patient Instructions: Atenolol (By mouth), Isosorbide Dinitrate (By mouth), Nitroglycerin (By mouth), Lisinopril (By mouth), Furosemide (By mouth), Potassium Chloride (By mouth), Aspirin (By mouth), Atorvastatin (By mouth), Clopidogrel (By mouth), Pantoprazole (By mouth), Myocardial Infarction (DC), Left Heart Catheterization (DC), Coronary Angioplasty (DC), CHF Stoplight, Post Angiogram Home Care Instructions Activity Restrictions/Additional Instructions: No driving for now. You are referred for coronary artery bypass surgery at [facility] with Dr. Hernandez, if you do not hear from them over next [address] Frias's office. You will be scheduled to see Dr. Frias or his nurse practitioner this coming Friday. If you have chest pain not getting better with nitroglycerin or if your frequent chest pain please call 911 and go to emergency room. Please call Dr. Frias switch house operator if needed Discharge Attestations Time Spent in Discharge Care*: greater than 30 min Specific Discharge Activities: Specific discharge activities: educating patient Quality Metrics Clinical Quality Measures During this hospital stay, did patient experience: AMI Clinical Trial Participant: No Contraindication to aspirin (AMI): Aspirin given Contraindication to statin: Statin prescribed Contraindication to PCI: PCI performed Coding Level of Care Code New Pt Acute Doctor Of Pharmacy for Chg Fwd Patient Type New History Comprehensive Exam Comprehensive Medical Decision Making High Complexity Diagnoses ST elevation TN (STEMI) I21.19 Involved coronary artery: other inferior wall coronary artery Shock, cardiogenic R57.0 Hyperlipidemia LDL goal <70 E78.5 CHF (congestive heart failure), NYHA class II I50.23 Congestive heart failure chronicity: acute on chronic Congestive heart failure type: systolic Time Spent (min) 50
--- NOTE | 2020-01-18 20:57 | PC.NURSE ---
PATIENT HAS BEEN VERY UPSET ALL DAY AND CONTINUED TO VERBALIZE THIS THROUGHOUT THE DAY ; UPON GETTING DISCHARGE ORDERS THE RN WENT OVER HIS APPOINTMENTS, MEDICATIONS AND DR INSTRUCTIONS ; PATIENT BECAME VERY UPSET WHEN HE WAS INSTRUCTED TO REFRAIN FROM DRIVING ; PATIENT DEMANDED THAT HE WOULD NOT SIGN DC PAPERWORK UNTIL HE SPOKE WITH DR FITCH ; DR FITCH WAS NOTIFIED BUT UNABLE TO COME TO FLOOR D/T OTHER RESPONSIBILITIES ; PATIENT CAME TO NURSES STATION SEVERAL TIMES AND CONTINUED TO STATE HOW HE FELT HE WAS BEING 'MISTREATED' ; THIS RN INFORMED PATIENT THAT DR FITCH WOULD BE ABLE TO ROUND SOON AND PATIENT RETURNED TO HIS ROOM ; PATIENT THEN USED CALL LIGHT TO AGAIN DEMAND TO SEE DR FITCH ; THIS RN INFORMED HIM AGAIN THAT DR FITCH WOULD ROUND SOON ; PATIENT THEN BEGAN TO AGAIN STATE HOW HE WAS BEING 'MISTREATED' AND BEING TREATED 'UNFAIRLY' PATIENT ALSO STATED THAT HE HAD NEW MEDICINES THAT HE DID NOT KNOW WHAT WERE BECAUSE NO ONE 'SPECIFICALLY DR FITCH' HAD NOT EXPLAINED THEM ; THIS RN ASKED HIM IF THE NURSE HAD GONE OVER HIS MEDICATIONS WHILE GOING OVER HIS DISCHARGE OR IF THE ELECTRON BEAM MACHINE WELDER SETTER HAD GONE OVER THE MEDICATIONS UPON DELIVERY ; PATIENT STATED YES TO BOTH QUESTIONS; HE THEN CAME TO THE DESK TO DEMAND TO BE RELEASED AND REQUESTED A PEN AND PAPER AND RETURNED TO HIS ROOM AFTER STATING AGAIN THAT HE WOULD NOT SIGN THE DC PAPERWORK ; HE CALLED ON THE CALL LIGHT AGAIN AND DEMANDED THIS RN BRING HIS PAPERWORK TO HIM ; THIS RN TOOK HIS DC PACKET AND SIGNATURE PAGE TO HIM ; IN HIS ROOM PATIENT DEMANDED HIS HOSPITAL RECORDS AND THIS RN REMINDED HIM OF THE PROCEDURE TO OBTAIN THOSE THAT WE HAD DISCUSSED EARLIER IN THE DAY ; HE CALLED THIS RN A LIAR ALONG WITH OTHER OBSCENITIES AND HANDED ME A POST IT NOTE AND TOLD ME TO MAKE A COPY FOR HIS FILE AND RETURN THE ORIGINAL TO HIM ; THIS RN LEFT THE ROOM AND CALLED FOR HS TO COME TO FLOOR AND HANDLE THE SITUATION ; HS AND DR FITCH MET WITH PATIENT AND WALKED WITH PATIENT TO NURSES STATION WHERE PATIENT DEMANDED HIS PAPERWORK AND 'RELEASE' TO LEAVE HOWEVER THE NO DRIVING WAS TO BE REMOVED ; DR FITCH STATED THAT HE COULD EITHER SIGN THE PAPERWORK IS OR SIGN AMA ; PATIENT CONTINUED TO BERATE STAFF AND DR FITCH ; PATIENT DID SIGN DC PAPERWORK BUT STATED THAT 'HE WOULD BE WRITING ALL OF US IN TO MEDICAL BOARDS' ; HS WALKED PATIENT TO EXIT WITH NO ISSUES ; IV REMOVED AT TIME DC WAS ORDERED AND PRESSURE DRESSING APPLIED WITH NO BLEEDING NOTED ; VSS REMAINED STABLE ; PATIENT CONTINUED TO DENY ANY CP OR SOB
== END 2020-01-18 19:10 | disposition home or self-care (01) | DRG 246 ==
LOC: ER 23:25 → CCL 23:30 → ICU 01-16 01:25 → CSU 01-17 09:45
PROVIDERS: Family Medicine; Admitting Provider Internal Medicine Cardiovascular Disease; Emergency Provider Emergency Medicine; Family Provider Psychiatry & Neurology Neurology; Visit Provider Internal Medicine Cardiovascular Disease
PROC: 027035Z Dilation of Coronary Artery, One Artery with Two Drug-eluting Intraluminal Devices, Percutaneous Approach (ICD-10-PCS; principal; 2020-01-15 23:00)
PROC: 027035Z Dilation of Coronary Artery, One Artery with Two Drug-eluting Intraluminal Devices, Percutaneous Approach (ICD-10-PCS; 2020-01-15 23:00)
DX: I21.19 ST elevation (STEMI) myocardial infarction involving other coronary artery of inferior wall (principal); I50.23 Acute on chronic systolic (congestive) heart failure; R57.0 Cardiogenic shock; I25.10 Atherosclerotic heart disease of native coronary artery without angina pectoris; Z91.19 Patient's noncompliance with other medical treatment and regimen
CPT/HCPCS: 12345; 36415; 71045; 80048; 80053; 80061; 82550; 82553; 84484; 85025; 85347; 85610; 85730; 93005; 93306; 93454; 96372; 96375; 99282; C1725; C1769; C1874; C1887; C1894; C9606; J1644; J1650; J1940; J2250; J2270; J2405; J3010; J3246; J7030; J7040; Q9967